=== PATIENT | female | born 1950 | race Two or more races ===

== ENCOUNTER 2025-05-29 15:32 | Emergency (ER) | payer MEDICARE, OTHER ==
[~2025-05-29] VITALS: Ht 167.6 cm; Wt 78.9 kg
[2025-05-29 17:16] LABS: PLATELET COUNT (AUTO) 236 K/uL (179-408); RED BLOOD CELL COUNT(AUTO) 4.70 MIL/uL (3.63-4.92); RED CELL DISTRIBUTION WIDTH 13.1 % (12.3-17.7); WHITE BLOOD COUNT (AUTO) 7.3 K/uL (3.8-11.8)
[2025-05-29 17:24] LABS: CREATININE 0.8 mg/dL (0.6-1.3); SODIUM SERUM 137 mmol/L (136-145); UREA NITROGEN, BLOOD 14 mg/dL (7-18)
[2025-05-29 17:30] LABS: ASPARTATE AMINOTRANSFERASE 11 U/L (15-37); TOTAL PROTEIN, SERUM 8.1 g/dL (6.4-8.2)
[2025-05-29] MEDS ORDERED: OXYCODONE/APAP 5-325 MG TABLET ONE ×2 (18:45→22:14)
[2025-05-29] MEDS: OXYCODONE/APAP 5-325 MG TABLET PO ONE ×2 (18:46→22:16)
[2025-05-29 21:38] VITALS: BP 128/89; O2SAT 97
== END 2025-05-29 22:35 | disposition short-term general hospital (02) ==
LOC: EDBD 15:32 → ER 15:32
DX: S80.02XA Contusion of left knee, initial encounter (principal); S80.01XA Contusion of right knee, initial encounter; S50.811A Abrasion of right forearm, initial encounter; M25.561 Pain in right knee; M25.562 Pain in left knee; R26.2 Difficulty in walking, not elsewhere classified; R94.31 Abnormal electrocardiogram [ECG] [EKG]; R22.43 Localized swelling, mass and lump, lower limb, bilateral; E11.9 Type 2 diabetes mellitus without complications; R07.0 Pain in throat; W18.39XA Other fall on same level, initial encounter; Y93.89 Activity, other specified; Y92.89 Other specified places as the place of occurrence of the external cause; Y99.8 Other external cause status
CPT/HCPCS: 36415; 71045; 84484; 85025; 85730; A4606; A4663